=== PATIENT | male | born 1965 | race Caucasian/White ===

== ENCOUNTER 2022-08-31 14:48 | Emergency (ER) | payer OTHER ==
[~2022-08-31] VITALS: Ht 172.7 cm; Wt 85.0 kg
[~2022-08-31 14:48] MED LIST: ALLO100T PO; ALPR2TAB2 PO; CITA10TA99 PO; COLC0.6T73 PO; HYDR-3977 PO; LAMO200T PO; TRAZ-186 PO; VALS160T2 PO
[2022-08-31] MEDS ORDERED: LamoTRIgine 100 MG TABLET PO ONE (16:30)
[2022-08-31 17:17] VITALS: BP 160/84
== END 2022-08-31 17:43 | disposition home or self-care (01) ==
LOC: EMS 14:48
DX: G40.909 Epilepsy, unspecified, not intractable, without status epilepticus (principal); I10 Essential (primary) hypertension; F32.A Depression, unspecified
CPT/HCPCS: 99283